=== PATIENT | male | born 1975 | race African-American/Black ===

== ENCOUNTER 2017-01-02 13:06 | Day surgery (SDC) | payer SELFPAY ==
[2016-12-28 18:34] LABS: HEMATOCRIT 42.8 % (40.0-51.0); HEMOGLOBIN 14.7 g/dL (13.6-17.8)
[2016-12-28 18:58] LABS: CALCIUM, SERUM 9.5 MG/DL (8.5-10.4); CHLORIDE, SERUM 107 MMOL/L (96-112); CO2 (CARBON DIOXIDE) 26 MMOL/L (24-34); CREATININE 1.22 MG/DL (0.70-1.30); GFR AFRICAN AMERICAN 84 ML/MIN (>=60); GFR NON AFRICAN AMERICAN 72 ML/MIN (>=60); SODIUM, SERUM 140 MMOL/L (135-148)
[2016-12-28 18:59] LABS: BUN (BLOOD UREA NITROGEN) 20 MG/DL (6-23); GLUCOSE, SERUM 78 MG/DL (60-99)
[~2017-01-02 13:06] MED LIST: BC ARTHRITIS P1 EACH PO; HYDROCHLOROT25 MG PO; LIPITOR10 PO; LISINOPRIL40 MG PO; NORCO1 TA1 PO; P20 PO; ULTRAM50 PO
== END 2017-01-02 19:15 | disposition home or self-care (01) ==
LOC: IMGHOLD 13:06 → RADHOLD 13:43
PROVIDERS: Anesthesiology; Orthopaedic Surgery Orthopaedic Surgery of the Spine
PROC: B03BZZZ Magnetic Resonance Imaging (MRI) of Spinal Cord (ICD-10-PCS; principal; 2017-01-02)
DX: M48.06 Spinal stenosis, lumbar region (principal); I10 Essential (primary) hypertension; E78.5 Hyperlipidemia, unspecified; F41.9 Anxiety disorder, unspecified; F17.290 Nicotine dependence, other tobacco product, uncomplicated; F40.240 Claustrophobia; Z79.82 Long term (current) use of aspirin; Z79.52 Long term (current) use of systemic steroids; Z79.899 Other long term (current) drug therapy
CPT/HCPCS: 72148; 80048; 85014; 85018; 93005; A9270-GY; J0330; J0360